=== PATIENT | male | born 1985 | race Caucasian/White ===

== ENCOUNTER 2018-03-14 21:50 | Observation (INO) ==
[2018-03-14] MEDS ORDERED: Acetaminophen 325 MG Tablet PO ONE (22:33)
[2018-03-14] MEDS ORDERED: Sod Chloride 0.9% Inj 800 ML IV.SIG SCH (22:45)
[2018-03-14] MEDS ORDERED: Sod Chloride 0.9% Inj 1,000 ML IV.SIG SCH (22:45)
--- NOTE | 2018-03-14 22:45 | ED ---
HPI General Chief complaint: Chest Pain Stated complaint: Rib and back pain x last PM Time Seen by Provider: 03/14/18 22:28 History of Present Illness HPI narrative: 33-year-old male here for evaluation of left-sided chest discomfort. The patient reports that the symptoms started yesterday evening, then resolved prior to going to bed. He states that he has had the pain all day today. He describes left anterior chest pain that radiates to his left back /flank, is constant, sharp/discomfort, worse with inspiration. He was noted to have a low-grade fever and tachycardia in triage. Denies cough or hemoptysis. No history of DVT or PE. No recent travel or immobilization. Denies illicit drugs or IVDU. Related Data Home Medications Medication Instructions Recorded Confirmed No Known Home Medications 03/14/18 03/14/18 Allergies Allergy/AdvReac Type Severity Reaction Status Date / Time Penicillins Allergy Severe Hives Verified 03/14/18 22:33 Review of Systems ROS: all other systems reviewed are negative [facility] Medical History Medical History DDD (degenerative disc disease) (Acute) Scoliosis (Acute) Surgical History Surgical History No history of previous surgery (Acute) Social History Social History Substance History: No History of Abuse Smoking Status: Current every day smoker Tobacco Type: Cigarettes How Often Do You Have a Drink Containing Alcohol: Monthly or less Immunization History Tetanus Immunization: >5 Years Hx Influenza Vaccine This Season: No Exam Narrative Exam Narrative: GENERAL: Well-developed, well-nourished, awake, alert, comfortable, no apparent distress. SKIN: Focused skin assessment warm/dry. HEAD: Atraumatic. Normocephalic. EYES: Pupils equal and round. No scleral icterus. No injection or drainage. ENT: No nasal bleeding or discharge. Mucous membranes pink and dry. NECK: Trachea midline. No JVD. CARDIOVASCULAR: Tachycardic, rate 120, regular. RESPIRATORY: No accessory muscle use. Clear to auscultation. Breath sounds equal bilaterally. GASTROINTESTINAL: Abdomen soft, non-tender, nondistended. Hepatic and splenic margins not palpable. MUSCULOSKELETAL: No obvious deformities. No clubbing. No cyanosis. No edema. NEUROLOGICAL: Awake and alert. No obvious cranial nerve deficits. Motor grossly within normal limits. Normal speech. PSYCHIATRIC: Appropriate mood and affect; insight and judgment normal. Course Initial Documented Vital Signs Temperature 99.4 F 03/14/18 22:12 Pulse Rate 122 H 03/14/18 22:12 Respiratory Rate 20 03/14/18 22:12 Blood Pressure 128/73 03/14/18 22:12 Pulse Oximetry 97 03/14/18 22:12 Last Documented Vital Signs Temperature 97.9 F 03/15/18 00:15 Pulse Rate 96 H 03/15/18 00:15 Respiratory Rate 16 03/14/18 23:29 Blood Pressure 117/64 03/15/18 00:15 Pulse Oximetry 97 03/15/18 00:15 Medical Decision Making MDM Narrative Medical decision making narrative: Labs, vital signs, and imaging studies were reviewed with the patient. Labs are remarkable for leukocytosis of 23,000. CT of the chest and abdomen and pelvis are negative for PE, there is left lower lung airspace disease with small effusion. Patient is still tachycardic despite receiving IV fluids. He will be started on IV Rocephin and azithromycin. Pain has improved with Toradol, however he still has discomfort with deep inspiration. Is also slightly hypoxic. Because of this he will be admitted for further treatment and evaluation. He is amenable to this plan. Case discussed with hospitalist Dr. Lou who will admit the patient to her service. Medical Screen Exam Complete: Yes Emergency Medical Condition: Yes Differential Diagnosis Differential Diagnosis: PE, sepsis, pneumonia, pyelonephritis, pleurisy, pericarditis, myocarditis Lab Data Result diagrams: 03/14/18 22:45 03/14/18 22:45 Lab Results 03/14/18 03/14/18 03/14/18 Range/Units 22:45 22:45 22:45 CBC w Diff Auto diff final WBC 23.9 H (4.0-11.0) th/mm3 RBC 4.92 (4.50-5.90) mil/mm3 Hgb 15.3 (13.0-17.0) gm/dL Hct 43.3 (39.0-51.0) % MCV 88.0 (80.0-100.0) fL MCH 31.2 (27.0-34.0) pg MCHC 35.4 (32.0-36.0) % RDW 14.3 (11.6-17.2) % Plt Count 325 (150-450) th/mm3 MPV 9.3 (7.0-11.0) fL Neut % (Auto) 91.9 H (16.0-70.0) % Lymph % (Auto) 5.4 L (9.0-44.0) % [place] % (Auto) 1.4 (0.0-8.0) % Eos % (Auto) 0.1 (0.0-4.0) % Baso % (Auto) 1.2 (0.0-2.0) % Neut # (Auto) 22.0 H (1.8-7.7) th/mm3 Lymph # (Auto) 1.3 (1.0-4.8) th/mm3 [place] # (Auto) 0.3 (0.0-0.9) th/mm3 Eos # (Auto) 0.0 (0.0-0.4) th/mm3 Baso # (Auto) 0.3 H (0.0-0.2) th/mm3 WBC Differential . Differential Comment . PT 9.6 L (9.8-11.6) sec INR 0.9 Ratio APTT 27.2 (24.3-30.1) sec Sodium 135 L (136-145) meq/L Potassium 4.1 (3.5-5.1) meq/L Chloride 99 (98-107) meq/L Carbon Dioxide 27.9 (21.0-32.0) meq/L Anion Gap 8 (5-15) meq/L BUN 9 (7-18) mg/dL Creatinine 1.30 (0.60-1.30) mg/dL Estimated GFR 64 L (>89) mL/min Random Glucose 105 (74-106) mg/dL Lactic Acid (0.4-2.0) mmol/L Calcium 10.0 (8.5-10.1) mg/dL Total Bilirubin 0.3 (0.2-1.0) mg/dL AST 14 L (15-37) U/L ALT 27 (12-78) U/L Alkaline Phosphatase 68 (45-117) U/L Total Creatine Kinase 112 (39-308) U/L CK-MB (CK-2) Less than 1.0 (0.5-3.6) ng/mL Troponin I Less than 0.02 L (0.02-0.05) ng/mL Total Protein 9.3 H (6.4-8.2) g/dL Albumin 4.9 (3.4-5.0) g/dL Lipase 98 (73-393) U/L Urine Color (Yellw/Straw) Urine Clarity (Clear) Urine pH (5.0-8.5) Ur Specific [place] (1.002-1.035) Urine Protein (Neg-Trace) mg/dL Urine Glucose (UA) (Negative) mg/dL Urine Ketones (Negative) mg/dL Urine Occult Blood (Negative) Urine Nitrate (Negative) Urine Bilirubin (Negative) Urine Urobilinogen (Less than 2) mg/dL Ur Leukocyte Esterase (Negative) 03/14/18 03/14/18 Range/Units 22:45 23:30 CBC w Diff WBC (4.0-11.0) th/mm3 RBC (4.50-5.90) mil/mm3 Hgb (13.0-17.0) gm/dL Hct (39.0-51.0) % MCV (80.0-100.0) fL MCH (27.0-34.0) pg MCHC (32.0-36.0) % RDW (11.6-17.2) % Plt Count (150-450) th/mm3 MPV (7.0-11.0) fL Neut % (Auto) (16.0-70.0) % Lymph % (Auto) (9.0-44.0) % [place] % (Auto) (0.0-8.0) % Eos % (Auto) (0.0-4.0) % Baso % (Auto) (0.0-2.0) % Neut # (Auto) (1.8-7.7) th/mm3 Lymph # (Auto) (1.0-4.8) th/mm3 [place] # (Auto) (0.0-0.9) th/mm3 Eos # (Auto) (0.0-0.4) th/mm3 Baso # (Auto) (0.0-0.2) th/mm3 WBC Differential Differential Comment PT (9.8-11.6) sec INR Ratio APTT (24.3-30.1) sec Sodium (136-145) meq/L Potassium (3.5-5.1) meq/L Chloride (98-107) meq/L Carbon Dioxide (21.0-32.0) meq/L Anion Gap (5-15) meq/L BUN (7-18) mg/dL Creatinine (0.60-1.30) mg/dL Estimated GFR (>89) mL/min Random Glucose (74-106) mg/dL Lactic Acid 2.0 (0.4-2.0) mmol/L Calcium (8.5-10.1) mg/dL Total Bilirubin (0.2-1.0) mg/dL AST (15-37) U/L ALT (12-78) U/L Alkaline Phosphatase (45-117) U/L Total Creatine Kinase (39-308) U/L CK-MB (CK-2) (0.5-3.6) ng/mL Troponin I (0.02-0.05) ng/mL Total Protein (6.4-8.2) g/dL Albumin (3.4-5.0) g/dL Lipase (73-393) U/L Urine Color Yellow (Yellw/Straw) Urine Clarity Clear (Clear) Urine pH 7.0 (5.0-8.5) Ur Specific [place] Less/equal 1.005 (1.002-1.035) Urine Protein Negative (Neg-Trace) mg/dL Urine Glucose (UA) Negative (Negative) mg/dL Urine Ketones Negative (Negative) mg/dL Urine Occult Blood Negative (Negative) Urine Nitrate Negative (Negative) Urine Bilirubin Negative (Negative) Urine Urobilinogen 0.2 (Less than 2) mg/dL Ur Leukocyte Esterase Negative (Negative) Imaging Data Radiologist's impression: Abdomen/Pelvis CT 03/14/18 22:33 CONCLUSION: 1. Mild left basilar airspace disease with small left effusion. Primary differential diagnosis is a mild bronchopneumonia with small parapneumonic effusion. 2. No acute findings within the abdomen and pelvis. Chest CTA 03/14/18 22:33 CONCLUSION: 1. Negative for pulmonary embolus. Small left-sided pleural effusion of unknown etiology. Chest X-Ray 03/14/18 22:34 CONCLUSION: Negative examination. ECG Data Attestation: I personally reviewed and interpreted this ECG as follows: (Sinus, rate 103, normal axis, normal intervals, no acute ischemic abnormality.) Discharge Plan Discharge Disposition Patient Disposition: 30 Still Patient Discharge Condition Condition: Stable Discharge Details Diagnosis: Pneumonia, SIRS (systemic inflammatory response syndrome) Physicians Team ED Provider: Will Buchanan Primary Care Provider: Primary Care Wanda Duckworth Rxs /Orders / Referrals /Forms Prescriptions: No Action No Known Home Medications RF: 0 Discharge Instructions Patient Printed Instructions: Chest Pain (ED) Discharge Interventions Interventions: Vital Signs Last Done: 03/15/18 00:15 Status ED Status: With Doctor
[2018-03-14 23:09] LABS: Chloride 99 meq/L (98-107); Potassium 4.1 meq/L (3.5-5.1); Sodium 135 meq/L (136-145)
[2018-03-14 23:14] LABS: Activated Partial Thrombo Time 27.2 sec (24.3-30.1); Baso # (Auto) 0.3 th/mm3 (0.0-0.2); Baso % (Auto) 1.2 % (0.0-2.0); Eos % (Auto) 0.1 % (0.0-4.0); Hematocrit 43.3 % (39.0-51.0); Hemoglobin 15.3 gm/dL (13.0-17.0); INR 0.9 Ratio; Lymph # (Auto) 1.3 th/mm3 (1.0-4.8); Lymph % (Auto) 5.4 % (9.0-44.0); Mean Corpuscular HGB Conc 35.4 % (32.0-36.0); Mean Corpuscular Hemoglobin 31.2 pg (27.0-34.0); Mean Platelet Volume 9.3 fL (7.0-11.0); Mono # (Auto) 0.3 th/mm3 (0.0-0.9); Mono % (Auto) 1.4 % (0.0-8.0); Neut % (Auto) 91.9 % (16.0-70.0); Platelet Count 325 th/mm3 (150-450); Prothrombin Time 9.6 sec (9.8-11.6); Red Blood Count 4.92 mil/mm3 (4.50-5.90); Red Cell Distribution Width 14.3 % (11.6-17.2); White Blood Count 23.9 th/mm3 (4.0-11.0)
[2018-03-14 23:15] LABS: Albumin 4.9 g/dL (3.4-5.0); Anion Gap 8 meq/L (5-15); Blood Urea Nitrogen 9 mg/dL (7-18); Carbon Dioxide 27.9 meq/L (21.0-32.0); Glucose,Random 105 mg/dL (74-106); Lipase 98 U/L (73-393)
[2018-03-14 23:17] LABS: Alanine Aminotransferase 27 U/L (12-78); Glomerular Filtration Rate 64 mL/min (>89)
[2018-03-14 23:18] LABS: Aspartate Aminotransferase 14 U/L (15-37)
[2018-03-14 23:19] LABS: Total Protein 9.3 g/dL (6.4-8.2)
[2018-03-14 23:20] LABS: Alkaline Phosphatase 68 U/L (45-117); Creatine Kinase 112 U/L (39-308)
--- NOTE | 2018-03-14 23:21 | XR ---
EXAM DATE: 03/14/2018 11:07 PM EDT AGE/SEX: 33 years / Male INDICATIONS: Short of breath, chest and back pain. CLINICAL DATA: This is the patient's initial encounter. Patient reports that signs and symptoms have been present for 1 day and indicates a pain score of 4/10. MEDICAL/SURGICAL HISTORY: None. None. COMPARISON: No prior exams available for comparison. FINDINGS: A single AP view of the chest demonstrates the lungs to be symmetrically aerated without evidence of mass, infiltrate or effusion. The cardiomediastinal contours are unremarkable. Osseous structures a re intact. CONCLUSION: Negative examination. Electronically signed by: Atilio De Dios MD 03/14/2018 11:20 PM EDT
[2018-03-14] MEDS ORDERED: Ketorolac Inj 30 MG/ML (IVP) Vial IV.PUSH ONE (23:31)
[2018-03-14 23:34] LABS: Bilirubin,Urine Negative (Negative); Clarity,Urine Clear (Clear); Color,Urine Yellow (Yellw/Straw); Glucose,Urine (UA) Negative (Negative); Leukocyte Esterase,Urine Negative (Negative); Nitrite,Urine Negative (Negative); Specific Gravity,Urine Less/Equal 1.005 (1.002-1.035); Urobilinogen,Urine 0.2 mg/dL (Less than 2)
--- NOTE | 2018-03-15 00:01 | CT ---
EXAM DATE: 03/14/2018 11:55 PM EDT AGE/SEX: 33 years / Male INDICATIONS: Chest pain. Shortness of breath. Evaluate for embolism. CLINICAL DATA: This is the patient's initial encounter. Patient reports that signs and symptoms have been present for 1 day and indicates a pain score of 4/10. MEDICAL/SURGICAL HISTORY: None. None. RADIATION DOSE: 10.51 CTDI (mGy) COMPARISON: No prior exams available for comparison. TECHNIQUE: Volumetric scanning was performed using a multi-row detector CT scanner during bolus infu anjum of 75 ml Omnipaque 350 (iohexol) nonionic water-soluble contrast as a cumulative dose for multi ple exams. The data was post processed with a variety of visualization algorithms including full volu me maximum intensity projection and sliding thin slab reformation. Using automated exposure control and adjustment of the mA and/or kV according to patient size, radiation dose was kept as low as reaso nably achievable to obtain optimal diagnostic quality images. DICOM format image data is available e lectronically for review and comparison. FINDINGS: No filling defects to suggest pulmonary embolus. Dependent atelectasis in both lungs with small left- sided pleural effusion. No pericardial effusion. Mild emphysema. No adenopathy. No acute findings in the upper abdomen. CONCLUSION: 1. Negative for pulmonary embolus. Small left-sided pleural effusion of unknown etiology. Electronically signed by: Atilio De Dios MD 03/15/2018 12:00 AM EDT
--- NOTE | 2018-03-15 00:13 | CT ---
EXAM DATE: 03/15/2018 12:00 AM EDT AGE/SEX: 33 years / Male INDICATIONS: Abdominal pain. CLINICAL DATA: This is the patient's initial encounter. Patient reports that signs and symptoms have been present for 1 day and indicates a pain score of 4/10. MEDICAL/SURGICAL HISTORY: None. None. ORAL CONTRAST: No oral contrast ingested. RADIATION DOSE: 7.10 CTDI (mGy) COMPARISON: No prior exams available for comparison. TECHNIQUE: Multiple contiguous axial images were obtained through the abdomen and pelvis following b olus infusion of 75 ml Omnipaque 350 (iohexol) nonionic water-soluble contrast as a cumulative dose for multiple exams. No oral contrast ingested. Using automated exposure control and adjustment of t he mA and/or kV according to patient size, radiation dose was kept as low as reasonably achievable to obtain optimal diagnostic quality images. DICOM format image data is available electronically for r eview and comparison. FINDINGS: There is some left basilar airspace disease posteriorly with small left effusion. Differential diagno sis includes a mild left basilar pneumonia with parapneumonic effusion. Mild fatty liver. Spleen, adrenals, kidneys and pancreas unremarkable. No free fluid. No bowel obstruction. No adenopathy. CONCLUSION: 1. Mild left basilar airspace disease with small left effusion. Primary differential diagnosis is a mild bronchopneumonia with small parapneumonic effusion. 2. No acute findings within the abdomen and pelvis. Electronically signed by: Atilio De Dios MD 03/15/2018 12:11 AM EDT
[2018-03-15] MEDS ORDERED: Acetaminophen 325 MG Tablet PO PRN (00:27)
[2018-03-15] MEDS ORDERED: Bisacodyl 10 MG Supp RECTAL PRN (00:27)
[2018-03-15 00:32] LABS: Squamous Epithelial Cell,Urine 0-5 /hpf (0-5)
[2018-03-15] MEDS: Azithromycin Inj 500 MG in Sodium Chlor 0.9% Inj 250 ML IV.SIG ONE ×2 (01:42→01:44)
[2018-03-15 08:46] LABS: Baso # (Auto) 0.2 th/mm3 (0.0-0.2); Baso % (Auto) 0.9 % (0.0-2.0); Eos # (Auto) 0.1 th/mm3 (0.0-0.4); Eos % (Auto) 0.3 % (0.0-4.0); Hematocrit 38.7 % (39.0-51.0); Hemoglobin 13.1 gm/dL (13.0-17.0); Lymph # (Auto) 2.3 th/mm3 (1.0-4.8); Mean Corpuscular HGB Conc 33.8 % (32.0-36.0); Mean Corpuscular Hemoglobin 29.9 pg (27.0-34.0); Mean Corpuscular Volume 88.5 fL (80.0-100.0); Mean Platelet Volume 8.7 fL (7.0-11.0); Mono # (Auto) 1.3 th/mm3 (0.0-0.9); Mono % (Auto) 7.2 % (0.0-8.0); Neut # (Auto) 13.6 th/mm3 (1.8-7.7); Neut % (Auto) 78.6 % (16.0-70.0); Platelet Count 257 th/mm3 (150-450); Red Blood Count 4.37 mil/mm3 (4.50-5.90); Red Cell Distribution Width 14.6 % (11.6-17.2); White Blood Count 17.5 th/mm3 (4.0-11.0)
[2018-03-15] MEDS: Senna/Docusate Sodium 8.6/50 MG Tablet PO SCH ×2 (08:54→21:44)
[2018-03-15 10:05] LABS: Anion Gap 8 meq/L (5-15); Calcium 8.5 mg/dL (8.5-10.1); Carbon Dioxide 25.1 meq/L (21.0-32.0); Chloride 108 meq/L (98-107); Glomerular Filtration Rate Greater Than 89 mL/min (>89); Glucose,Random 102 mg/dL (74-106); Sodium 141 meq/L (136-145)
[2018-03-15 10:18] LABS: Blood Urea Nitrogen 10 mg/dL (7-18)
--- NOTE | 2018-03-15 11:09 | P.PNIM ---
Subjective Interval history: Mr. Renteria is a 33 yo male with PMH of back pain who presented to [facility] ED 03/14 with chest and left arm pain; patient states that this pain started the night before last. Patient describes some of his pain as constant, but that he has sharp increase of pain with deep breaths. patient reports that he Patient still had chest tightness afterwards. Patient had pain with deep breeaths. Aching never went away. vomiting 2 days prior from pain; not from eating. no coughing more than usual; patient coughs. Patient had a subjective fever before before he came in. No problems with urination or bowel movements left arm tingling when it started also pain with breathing deeply; much better with meds feels like not getting full breaths SH <1PPD no drugs FH dad- cancer- in spine GF- DC x2; pneumonia <Mom- in/out of hospital for ? problems Sh none PMH back pain since age 13yrs deteriorating joints small narrowing of spinal canal. doesn't realize when different Physical Exam Vital signs: Vital Signs 03/14/18 22:12 03/14/18 22:52 03/14/18 23:29 Temperature 99.4 F Pulse Rate 122 H 104 H Respiratory Rate 20 16 Blood Pressure 128/73 117/70 Pulse Oximetry 97 98 97 03/15/18 00:15 03/15/18 01:19 03/15/18 04:00 Temperature 97.9 F 97.8 F 96.1 F L Pulse Rate 96 H 92 H 85 Respiratory Rate 18 18 Blood Pressure 117/64 116/70 99/52 L Pulse Oximetry 97 94 L 97 03/15/18 08:00 Temperature 98.2 F Pulse Rate 80 Respiratory Rate 16 Blood Pressure 102/59 L Pulse Oximetry 97 Intake & Output 03/14/18 03/15/18 03/15/18 18:59 06:59 18:59 Intake Total 2250 / 2250 Balance 2250 / 2250 Weight 66.2 kg Intake: IV 2150 / 2150 Azithromycin Inj 500 MG In NS 250 / 250 Inj 250 ML @ 250 mls/hr IV.SIG ONCE ONE Rx#:[id number] NS Inj 1,000 ML @ Wide Open IV. 1800 / 1800 SIG .Q0M JOSE Rx#:[id number] Rocephin Inj 1,000 MG In NS Inj 100 / 100 100 ML @ 200 mls/hr IV.SIG ONCE ONE Rx#:[id number] Oral 100 / 100 Other: # Voids 1 Date of Last Bowel Movement 03/14/18 Weight On Admission 66.2 kg Results - Labs CBC & Chem 7: 03/15/18 08:31 03/15/18 09:06 Laboratory Results - last 24 hr 03/14/18 03/14/18 03/14/18 22:45 22:45 22:45 CBC w Diff Auto diff final WBC 23.9 H RBC 4.92 Hgb 15.3 Hct 43.3 MCV 88.0 MCH 31.2 MCHC 35.4 RDW 14.3 Plt Count 325 MPV 9.3 Neut % (Auto) 91.9 H Lymph % (Auto) 5.4 L [place] % (Auto) 1.4 Eos % (Auto) 0.1 Baso % (Auto) 1.2 Neut # (Auto) 22.0 H Lymph # (Auto) 1.3 [place] # (Auto) 0.3 Eos # (Auto) 0.0 Baso # (Auto) 0.3 H WBC Differential . Differential Comment . PT 9.6 L INR 0.9 APTT 27.2 Sodium 135 L Potassium 4.1 Chloride 99 Carbon Dioxide 27.9 Anion Gap 8 BUN 9 Creatinine 1.30 Estimated GFR 64 L Random Glucose 105 Lactic Acid Calcium 10.0 Total Bilirubin 0.3 AST 14 L ALT 27 Alkaline Phosphatase 68 Total Creatine Kinase 112 CK-MB (CK-2) Less than 1.0 Troponin I Less than 0.02 L Total Protein 9.3 H Albumin 4.9 Lipase 98 Urine Color Urine Clarity Urine pH Ur Specific [place] Urine Protein Urine Glucose (UA) Urine Ketones Urine Occult Blood Urine Nitrate Urine Bilirubin Urine Urobilinogen Ur Leukocyte Esterase Ur Squamous Epith Cells Micro UA Comment Ur Microscopic Review Urine Culture Comments 03/14/18 03/14/18 03/15/18 22:45 23:30 08:31 CBC w Diff Auto diff final WBC 17.5 H RBC 4.37 L Hgb 13.1 D Hct 38.7 L MCV 88.5 MCH 29.9 MCHC 33.8 RDW 14.6 Plt Count 257 MPV 8.7 Neut % (Auto) 78.6 H Lymph % (Auto) 13.0 [place] % (Auto) 7.2 Eos % (Auto) 0.3 Baso % (Auto) 0.9 Neut # (Auto) 13.6 H Lymph # (Auto) 2.3 [place] # (Auto) 1.3 H Eos # (Auto) 0.1 Baso # (Auto) 0.2 WBC Differential . Differential Comment . PT INR APTT Sodium Potassium Chloride Carbon Dioxide Anion Gap BUN Creatinine Estimated GFR Random Glucose Lactic Acid 2.0 Calcium Total Bilirubin AST ALT Alkaline Phosphatase Total Creatine Kinase CK-MB (CK-2) Troponin I Total Protein Albumin Lipase Urine Color Yellow Urine Clarity Clear Urine pH 7.0 Ur Specific [place] Less/equal 1.005 Urine Protein Negative Urine Glucose (UA) Negative Urine Ketones Negative Urine Occult Blood Negative Urine Nitrate Negative Urine Bilirubin Negative Urine Urobilinogen 0.2 Ur Leukocyte Esterase Negative Ur Squamous Epith Cells 0-5 Micro UA Comment Culture not ind Ur Microscopic Review Microscopic reviewed Urine Culture Comments Culture not ind 03/15/18 09:06 CBC w Diff WBC RBC Hgb Hct MCV MCH MCHC RDW Plt Count MPV Neut % (Auto) Lymph % (Auto) [place] % (Auto) Eos % (Auto) Baso % (Auto) Neut # (Auto) Lymph # (Auto) [place] # (Auto) Eos # (Auto) Baso # (Auto) WBC Differential Differential Comment PT INR APTT Sodium 141 Potassium 4.0 Chloride 108 H D Carbon Dioxide 25.1 Anion Gap 8 BUN 10 Creatinine 0.83 Estimated GFR Greater than 89 Random Glucose 102 Lactic Acid Calcium 8.5 D Total Bilirubin AST ALT Alkaline Phosphatase Total Creatine Kinase CK-MB (CK-2) Troponin I Total Protein Albumin Lipase Urine Color Urine Clarity Urine pH Ur Specific [place] Urine Protein Urine Glucose (UA) Urine Ketones Urine Occult Blood Urine Nitrate Urine Bilirubin Urine Urobilinogen Ur Leukocyte Esterase Ur Squamous Epith Cells Micro UA Comment Ur Microscopic Review Urine Culture Comments Microbiology 03/14/18 22:53 Blood - Peripheral Aerobic Blood Culture - Preliminary No growth in 1 day 03/14/18 22:53 Blood - Peripheral Anaerobic Blood Culture - Preliminary No growth in 1 day 03/14/18 22:45 Blood - Peripheral Aerobic Blood Culture - Preliminary No growth in 1 day 03/14/18 22:45 Blood - Peripheral Anaerobic Blood Culture - Preliminary No growth in 1 day - Imaging Impressions Abdomen/Pelvis CT 03/14/18 22:33 CONCLUSION: 1. Mild left basilar airspace disease with small left effusion. Primary differential diagnosis is a mild bronchopneumonia with small parapneumonic effusion. 2. No acute findings within the abdomen and pelvis. Chest CTA 03/14/18 22:33 CONCLUSION: 1. Negative for pulmonary embolus. Small left-sided pleural effusion of unknown etiology. Chest X-Ray 03/14/18 22:34 CONCLUSION: Negative examination.
[2018-03-15] MEDS ORDERED: Ibuprofen 600 MG Tablet PO PRN (12:52)
--- NOTE | 2018-03-15 12:57 | P.HPIM ---
History of Present Illness Service: [facility] Primary Care Physician: No Primary Care Physician Chief Complaint: chest pain/arm pain History of Present Illness: Mr. Renteria is a 33 yo male with PMH of back pain who presented to [facility] ED 03/14 with chest and left arm pain; patient states that this pain started the night before last. Patient describes some of his pain as constant, but that he has sharp increases of pain with deep breaths. No reported exertional symptoms. No sputum production. Patient has had a subjective fever. Patient has had a mild cough but no more than usual. Patient feels that pain is improved but still present with deep breaths. Patient had one episode of vomiting which he attributes to pain; no postprandial pain or vomiting. Normal bowel movements and urination. No headache, vision changes, or extremity numbness/tingling/ weakness reported. Patient reports distant IVDU but none for years. PMH-back pain since age 13, some scoliosis/ chronic spinal pathology PSH- none FH- Dad- unspecified spine cancer. Mom- ? psychiatric problems. GP- CAD, pneumonia. SH- smoking <1PPD. No recent drug use but distant IVDU Review of Systems Constitutional: Reports fever(s) (subjective), Denies chills Eyes: Denies blurry vision, Denies change in vision Ears, Nose, Mouth, and Throat: Denies neck pain, Denies sore throat Cardiovascular: Reports chest pain, Denies shortness of breath Respiratory: Denies change in phlegm color, Denies wheezing Gastrointestinal: Denies abdominal pain, Denies change in stools Genitourinary: Denies urinary frequency, Denies urinary urgency Musculoskeletal: Denies numbness, Denies tingling Skin/Breast: Denies lesions, Denies rash Neurologic: Denies abnormal speech, Denies tingling Psychiatric: Denies anxiety, Denies depression Allergic/Immunologic: Denies GI upset with certain foods, Denies wheezing PMFSH - History History Provided By: Patient - Medical History Medical History: Medical History (Last Updated 03/14/18 @ 22:34 by Christina Landry RN) DDD (degenerative disc disease) Scoliosis - Surgical History Surgical History: Surgical History (Last Updated 03/14/18 @ 22:34 by Christina Landry RN) No history of previous surgery - Family History Family History: Family History (Last Updated 03/15/18 @ 12:43 by Chandler Stokes MD) Grandparent CAD (coronary artery disease) Father Cancer Other Pneumonia - Tobacco History Second Hand Smoke Exposure: No Tobacco Use In Past 30 Days: Yes Smoking Status: Current some day smoker Tobacco Type: Cigarettes - Alcohol History How Often Do You Have a Drink Containing Alcohol: Never - Substance Use History Substance History: No History of Abuse - Immunization History Tetanus Immunization: Unable to Assess Hx Influenza Vaccine This Season: No Medications and Allergies Active Medications: Active Medications Acetaminophen (Tylenol) 650 mg PO Q4H PRN PRN Reason: Temp > 100.4 Al Hydroxide/Mg Hydroxide (Milk Of Magnesia Liq) 30 ml PO Q12H PRN PRN Reason: Mild Constipation Albuterol (Duoneb Neb (Prn)) 1 ampul NEB Q4HR NEB PRN PRN Reason: SOB/Wheezing Bisacodyl (Dulcolax Supp) 10 mg RECTAL DAILY PRN PRN Reason: SEVERE CONSITIPATION Sodium Chloride (Ns Inj) 1,000 mls @ 0 mls/hr IV.SIG .Q0M JOSE Last Infusion: 03/15/18 00:46 Dose: Infused Sodium Chloride (Ns Inj) 800 mls @ 0 mls/hr IV.SIG .Q0M JOSE Last Infusion: 03/15/18 00:23 Dose: Infused Azithromycin 500 mg/ Sodium (Chloride) 250 mls @ 250 mls/hr IV.SIG Q24H JOSE Ceftriaxone Sodium 1,000 mg/ (Sodium Chloride) 100 mls @ 200 mls/hr IV.SIG Q24H JOSE Lactulose (Lactulose Liq) 30 ml PO DAILY PRN PRN Reason: SEVERE CONSITIPATION Ondansetron HCl (Zofran Inj) 4 mg IV.PUSH Q6H PRN PRN Reason: NAUSEA OR VOMITING Senna/Docusate Sodium (Vesna-Colace) 1 tab PO BID JOSE Last Admin: 03/15/18 08:54 Dose: 1 tab Sennosides (Senokot) 17.2 mg PO Q12H PRN PRN Reason: Moderate Constipation Allergies Allergy/AdvReac Type Severity Reaction Status Date / Time Penicillins Allergy Severe Hives Verified 03/14/18 22:33 Home Medications Medication Instructions Recorded Confirmed Type No Known Home Medications 03/14/18 03/14/18 History Exam Vital signs: Vital Signs 03/14/18 22:12 03/14/18 22:52 03/14/18 23:29 Temperature 99.4 F Pulse Rate 122 H 104 H Respiratory Rate 20 16 Blood Pressure 128/73 117/70 Pulse Oximetry 97 98 97 03/15/18 00:15 03/15/18 01:19 03/15/18 04:00 Temperature 97.9 F 97.8 F 96.1 F L Pulse Rate 96 H 92 H 85 Respiratory Rate 18 18 Blood Pressure 117/64 116/70 99/52 L Pulse Oximetry 97 94 L 97 03/15/18 08:00 03/15/18 12:00 Temperature 98.2 F 97.9 F Pulse Rate 80 73 Respiratory Rate 16 16 Blood Pressure 102/59 L 112/61 Pulse Oximetry 97 98 Intake & Output 03/14/18 03/15/18 03/15/18 18:59 06:59 18:59 Intake Total 2250 / 2250 Balance 2250 / 2250 Weight 66.2 kg Intake: IV 2150 / 2150 Azithromycin Inj 500 MG In NS 250 / 250 Inj 250 ML @ 250 mls/hr IV.SIG ONCE ONE Rx#:[id number] NS Inj 1,000 ML @ Wide Open IV. 1800 / 1800 SIG .Q0M JOSE Rx#:[id number] Rocephin Inj 1,000 MG In NS Inj 100 / 100 100 ML @ 200 mls/hr IV.SIG ONCE ONE Rx#:[id number] Oral 100 / 100 Other: # Voids 1 Date of Last Bowel Movement 03/14/18 Weight On Admission 66.2 kg Narrative: GENERAL: no acute distress SKIN: no visible lesions EYES: EOM grossly I ENT: Mucous membranes pink and moist. CARDIOVASCULAR: Regular rate and rhythm; no murmurs. Normal perfusion. No LE edema RESPIRATORY: CTAB; normal rate. Chest: Mild pain with deep inspiration GASTROINTESTINAL: Abdomen soft, nontender, nondistended. Normal bowel sounds. MUSCULOSKELETAL: Grossly normal ROM and motor function NEUROLOGICAL: Awake and alert. No obvious cranial nerve deficits. Grossly normal peripheral motor/sensory function PSYCHIATRIC: Appropriate mood and affect; insight and judgment normal Results - Labs CBC & Chem 7: 03/15/18 08:31 03/15/18 09:06 Labs: Short CBC 03/14/18 03/15/18 Range/Units 22:45 08:31 WBC 23.9 H 17.5 H (4.0-11.0) th/mm3 Hgb 15.3 13.1 D (13.0-17.0) gm/dL Hct 43.3 38.7 L (39.0-51.0) % Plt Count 325 257 (150-450) th/mm3 BMP 03/14/18 03/15/18 22:45 09:06 Sodium 135 L 141 Potassium 4.1 4.0 Chloride 99 108 H D Carbon Dioxide 27.9 25.1 BUN 9 10 Creatinine 1.30 0.83 Calcium 10.0 8.5 D Cardiac Enzymes 03/14/18 Range/Units 22:45 Total Creatine Kinase 112 (39-308) U/L CK-MB (CK-2) Less than 1.0 (0.5-3.6) ng/mL Troponin I Less than 0.02 L (0.02-0.05) ng/mL Liver Function 03/14/18 Range/Units 22:45 Total Bilirubin 0.3 (0.2-1.0) mg/dL AST 14 L (15-37) U/L ALT 27 (12-78) U/L Alkaline Phosphatase 68 (45-117) U/L Albumin 4.9 (3.4-5.0) g/dL Urine 03/14/18 Range/Units 23:30 Urine Color Yellow (Yellw/Straw) Urine Clarity Clear (Clear) Urine pH 7.0 (5.0-8.5) Ur Specific [place] Less/equal 1.005 (1.002-1.035) Urine Protein Negative (Neg-Trace) mg/dL Urine Glucose (UA) Negative (Negative) mg/dL - Imaging Impressions Abdomen/Pelvis CT 03/14/18 22:33 CONCLUSION: 1. Mild left basilar airspace disease with small left effusion. Primary differential diagnosis is a mild bronchopneumonia with small parapneumonic effusion. 2. No acute findings within the abdomen and pelvis. Chest CTA 03/14/18 22:33 CONCLUSION: 1. Negative for pulmonary embolus. Small left-sided pleural effusion of unknown etiology. Chest X-Ray 03/14/18 22:34 CONCLUSION: Negative examination. Caprini VTE Risk Assessment Caprini VTE Risk Assessment: No/Low Risk (score <= 1) Caprini Risk Assessment Model: Point Value = 1 Point Value = 2 Point Value = 3 Point Value = 5 Age 41-60 Minor surgery BMI > 25 kg/m2 Swollen legs Varicose veins or History of unexplained or recurrent spontaneous Oral contraceptives or hormone replacement Sepsis (< 1 month) Serious lung disease, including pneumonia (< 1 month) Abnormal pulmonary function Acute myocardial infarction Congestive heart failure (< 1 month) History of inflammatory bowel disease Medical patient at bed rest Age 61-74 Arthroscopic surgery Major open surgery (> 45 min) Laparoscopic surgery (> 45 min) Malignancy Confined to bed (> 72 hours) Immobilizing plaster cast Central venous access Age >= 75 History of VTE Family history of VTE Factor V Leiden Prothrombin [id number] Lupus anticoagulant Anticardiolipin antibodies Elevated serum homocysteine Heparin-induced thrombocytopenia Other congenital or acquired thrombophilia Stroke (< 1 month) Elective arthroplasty Hip, pelvis, or leg fracture Acute spinal cord injury (< 1 month) Prophylaxis Regimen: Total Risk Factor Score Risk Level Prophylaxis Regimen 0-1 Low Early ambulation 2 Moderate Order ONE of the following: *Sequential Compression Device (SCD) *Heparin 5000 units SQ BID 3-4 Higher Order ONE of the following medications: *Heparin 5000 units SQ TID *Enoxaparin/Lovenox 40 mg SQ daily (WT < 150 kg, CrCl > 30 mL/min) *Enoxaparin/Lovenox 30 mg SQ daily (WT < 150 kg, CrCl > 10-29 mL/min) *Enoxaparin/Lovenox 30 mg SQ BID (WT < 150 kg, CrCl > 30 mL/min) AND/OR *Sequential Compression Device (SCD) 5 or more Highest Order ONE of the following medications: *Heparin 5000 units SQ TID (Preferred with Epidurals) *Enoxaparin/Lovenox 40 mg SQ daily (WT < 150 kg, CrCl > 30 mL/min) *Enoxaparin/Lovenox 30 mg SQ daily (WT < 150 kg, CrCl > 10-29 mL/min) *Enoxaparin/Lovenox 30 mg SQ BID (WT < 150 kg, CrCl > 30 mL/min) AND *Sequential Compression Device (SCD) Assessment and Plan - Plan Mr. Renteria is a 33 yo M with: Chest pain, leukocytosis Impression: 2 day history of chest pain; worse with deep inspiration. Unclear etiology of symptoms Vitals on admission: HR >120, otherwise unremarkable. Labs on admission: WBC 23.9K (91.9 neutrophils), troponin <0.02, Cr 1.3. EKG- sinus tachycardia; no obvious LVH or other pathology identified CXR negative CT A/P- mild L basilar airspace disease w/ small left effusion. Primary differential is mild bronchopneumonia with small parapneumonic effusion CTA- No PE. Small left sided effusion -Continue to trend CBC -WBC decreased to ~17 K today -Continue to monitor blood cultures -Continue empiric CAP treatment -Rocephin and Azithromycin -Ibuprofen for pain control -Will check UDS -Monitor telemetry, VS -Will check ESR and echo (atypical presentation and distant IVDU) DVT PPX SCD's Code Status: Full code Discharge Planning: Will await negative blood cultures x >2 days H&P: Quality - VTE Deep Vein Thrombosis/Pulmonary Embolism Present on Admission: No
[2018-03-15 15:02] LABS: Amphetamine Screen,Urine Neg (Neg); Barbiturate Screen,Urine Neg (Neg); Cannabinoid Screen,Urine Neg (Neg); Cocaine Screen,Urine Neg (Neg)
[2018-03-15 15:07] LABS: Opiate Screen,Urine Neg (Neg)
--- NOTE | 2018-03-15 16:54 | ECHRPT ---
Indication: CHEST PAIN CONCLUSIONS The left ventricular systolic function is normal with an estimated ejection fraction in the range of 60-65%. Normal left ventricular size. Wall thickness is normal. No regional wall motion abnormalities are present. BP: / HR: Rhythm: Sinus MEASUREMENTS (Male / Female) Normal Values Technical Quality:Good 2D ECHO LV Diastolic Diameter PLAX 4.5 cm 4.2 - 5.9 / 3.9 - 5.3 cm LV Systolic Diameter PLAX 3.2 cm IVS Diastolic Thickness 0.8 cm 0.6 - 1.0 / 0.6 - 0.9 cm LVPW Diastolic Thickness 0.7 cm 0.6 - 1.0 / 0.6 - 0.9 cm LV Relative Wall Thickness 0.3 RV Internal Dim ED PLAX 2.5 cm LVOT Diameter 2.0 cm LA Systolic Diameter LX 2.3 cm 3.0 - 4.0 / 2.7 - 3.8 cm LV Ejection Fraction MOD 4C 62.7 % LV Ejection Fraction 4C AL 64.8 % FINDINGS LEFT VENTRICLE The left ventricular systolic function is normal with an estimated ejection fraction in the range of 60-65%. Normal left ventricular size. Wall thickness is normal. No regional wall motion abnormalities are present. RIGHT VENTRICLE Normal right ventricular size and systolic function. LEFT ATRIUM The left atrial size is normal. RIGHT ATRIUM The right atrial size is normal. MITRAL VALVE Structurally normal mitral valve. No mitral valve stenosis or regurgitation. AORTIC VALVE Parasternal images were not obtained with this study. No aortic valve stenosis or regurgitation. TRICUSPID VALVE Structurally normal tricuspid valve. No tricuspid valve stenosis or regurgitation. PERICARDIUM No pericardial effusion. Marko Grider (Electronically Signed) Final Date:15 March 2018 16:53
--- NOTE | 2018-03-15 18:51 | ECG ---
Date Performed: 03/14/2018 Time Performed: 22:56:18 PTAGE: 33 years EKG: SINUS TACHYCARDIA ABNORMAL RHYTHM ECG NO PREVIOUS TRACING DOCTOR: Giovanni Andujar Interpretating Date/Time 03/15/2018 18:47:57
[2018-03-16] MEDS ORDERED: Azithromycin Inj 500 MG in Sodium Chlor 0.9% Inj 250 ML IV.SIG SCH (01:00)
[2018-03-16 06:29] LABS: Chloride 106 meq/L (98-107); Potassium 4.3 meq/L (3.5-5.1); Sodium 139 meq/L (136-145)
[2018-03-16 06:34] LABS: Anion Gap 7 meq/L (5-15); Calcium 8.2 mg/dL (8.5-10.1); Carbon Dioxide 25.6 meq/L (21.0-32.0)
[2018-03-16 06:35] LABS: Blood Urea Nitrogen 12 mg/dL (7-18); Glucose,Random 94 mg/dL (74-106)
[2018-03-16 06:36] LABS: Baso # (Auto) 0.1 th/mm3 (0.0-0.2); Baso % (Auto) 0.8 % (0.0-2.0); Eos # (Auto) 0.4 th/mm3 (0.0-0.4); Eos % (Auto) 3.5 % (0.0-4.0); Hematocrit 38.5 % (39.0-51.0); Hemoglobin 12.6 gm/dL (13.0-17.0); Lymph # (Auto) 4.3 th/mm3 (1.0-4.8); Lymph % (Auto) 38.7 % (9.0-44.0); Mean Corpuscular HGB Conc 32.7 % (32.0-36.0); Mean Corpuscular Hemoglobin 29.7 pg (27.0-34.0); Mean Corpuscular Volume 90.9 fL (80.0-100.0); Mean Platelet Volume 9.3 fL (7.0-11.0); Mono # (Auto) 0.9 th/mm3 (0.0-0.9); Mono % (Auto) 8.2 % (0.0-8.0); Neut # (Auto) 5.3 th/mm3 (1.8-7.7); Neut % (Auto) 48.8 % (16.0-70.0); Platelet Count 244 th/mm3 (150-450); Red Blood Count 4.24 mil/mm3 (4.50-5.90); Red Cell Distribution Width 14.4 % (11.6-17.2); White Blood Count 11.1 th/mm3 (4.0-11.0)
[2018-03-16 06:38] LABS: Glomerular Filtration Rate Greater Than 89 mL/min (>89)
[2018-03-16 08:07] VITALS: RESP 18
[2018-03-16] MEDS: Senna/Docusate Sodium 8.6/50 MG Tablet PO SCH (08:32)
[2018-03-16] MEDS ORDERED: Meloxicam 7.5 MG Tablet PO SCH (11:30)
--- NOTE | 2018-03-16 11:33 | P.PNIM ---
Subjective Interval history: Mr. Renteria was afebrile with stable VS overnight. Patient reports continued chest pain when breathing deeply or rotating his body in bed. Pain is in left chest. Patient otherwise is doing ok. No reported shortness of breath or urinary/bowel abnormalities. Patient is agreeable with discharge home and follow-up with a primary care physician. Physical Exam Vital signs: Vital Signs 03/15/18 12:00 03/15/18 16:00 03/15/18 20:00 Temperature 97.9 F 98.5 F 96.7 F L Pulse Rate 73 73 73 Respiratory Rate 16 16 20 Blood Pressure 112/61 112/64 116/74 Pulse Oximetry 98 98 99 03/15/18 23:26 03/16/18 00:00 03/16/18 01:21 Temperature 96.9 F L Pulse Rate 67 Respiratory Rate 20 20 20 Blood Pressure 103/64 Pulse Oximetry 98 03/16/18 04:00 03/16/18 08:00 Temperature 96.4 F L Pulse Rate 59 L 76 Respiratory Rate 20 18 Blood Pressure 102/55 L 116/74 Pulse Oximetry 98 96 Intake & Output 03/15/18 03/16/18 03/16/18 18:59 06:59 18:59 Intake Total 710 / 710 Balance 710 / 710 Weight 68.6 kg Intake: IV 350 / 350 Azithromycin Inj 500 MG In NS 250 / 250 Inj 250 ML @ 250 mls/hr IV.SIG Q24H JOSE Rx#:[id number] Rocephin Inj 1,000 MG In NS Inj 100 / 100 100 ML @ 200 mls/hr IV.SIG Q24H JOSE Rx#:[id number] Oral 360 / 360 Other: # Voids 3 Date of Last Bowel Movement 03/14/18 03/14/18 03/14/18 Narrative: GENERAL: no acute distress SKIN: no visible lesions EYES: EOM grossly I CARDIOVASCULAR: Regular rate and rhythm; no murmurs. Normal perfusion. No LE edema RESPIRATORY: CTAB; normal rate Chest: Mild persistent chest pain left of sternum with inspiration at ~5th rib; no point tenderness to palpation GASTROINTESTINAL: Abdomen soft, nontender, nondistended. Normal bowel sounds. MUSCULOSKELETAL: Grossly normal ROM and motor function NEUROLOGICAL: Awake and alert. No obvious cranial nerve deficits. Grossly normal peripheral motor/sensory function PSYCHIATRIC: Appropriate mood and affect; insight and judgment normal Results - Labs CBC & Chem 7: 03/16/18 05:20 03/16/18 05:20 Laboratory Results - last 24 hr 03/15/18 03/15/18 03/16/18 08:31 14:41 05:20 CBC w Diff Auto diff final WBC 11.1 H RBC 4.24 L Hgb 12.6 L Hct 38.5 L MCV 90.9 MCH 29.7 MCHC 32.7 RDW 14.4 Plt Count 244 MPV 9.3 Neut % (Auto) 48.8 Lymph % (Auto) 38.7 Swisher % (Auto) 8.2 H Eos % (Auto) 3.5 Baso % (Auto) 0.8 Neut # (Auto) 5.3 Lymph # (Auto) 4.3 Swisher # (Auto) 0.9 Eos # (Auto) 0.4 Baso # (Auto) 0.1 WBC Differential . Differential Comment . ESR 2 Sodium Potassium Chloride Carbon Dioxide Anion Gap BUN Creatinine Estimated GFR Random Glucose Calcium Urine Opiates Screen Neg Ur Barbiturates Screen Neg Ur Amphetamines Screen Neg U Benzodiazepines Scrn Neg Urine Cocaine Screen Neg U Cannabinoids Screen Neg 03/16/18 05:20 CBC w Diff WBC RBC Hgb Hct MCV MCH MCHC RDW Plt Count MPV Neut % (Auto) Lymph % (Auto) Swisher % (Auto) Eos % (Auto) Baso % (Auto) Neut # (Auto) Lymph # (Auto) Swisher # (Auto) Eos # (Auto) Baso # (Auto) WBC Differential Differential Comment ESR Sodium 139 Potassium 4.3 Chloride 106 Carbon Dioxide 25.6 Anion Gap 7 BUN 12 Creatinine 0.81 Estimated GFR Greater than 89 Random Glucose 94 Calcium 8.2 L Urine Opiates Screen Ur Barbiturates Screen Ur Amphetamines Screen U Benzodiazepines Scrn Urine Cocaine Screen U Cannabinoids Screen Microbiology 03/14/18 22:53 Blood - Peripheral Aerobic Blood Culture - Preliminary No growth in 2 days 03/14/18 22:53 Blood - Peripheral Anaerobic Blood Culture - Preliminary No growth in 2 days 03/14/18 22:45 Blood - Peripheral Aerobic Blood Culture - Preliminary No growth in 2 days 03/14/18 22:45 Blood - Peripheral Anaerobic Blood Culture - Preliminary No growth in 2 days Assessment and Plan - Assessment (1) Chest pain Code(s): R07.9 - Chest pain, unspecified Status: Acute (2) Pneumonia Code(s): J18.9 - Pneumonia, unspecified organism Status: Acute (3) SIRS (systemic inflammatory response syndrome) Code(s): R65.10 - Systemic inflammatory response syndrome (SIRS) of non- infectious origin without acute organ dysfunction Status: Acute - Plan Mr. Renteria is a 33 yo M with: Chest pain, leukocytosis Impression: History: 2 day history of chest pain; worse with deep inspiration. Unclear etiology of symptoms Vitals on admission: HR >120, otherwise unremarkable. EKG- sinus tachycardia; no obvious LVH or other pathology identified CXR negative Labs: WBC 23.9K on admission (91.9 neutrophils), troponin <0.02, Cr 1.3. ESR 2 Lab trending- WBC 23.9K-> 17.5K-> 11.1K CT A/P- mild L basilar airspace disease w/ small left effusion UDS negative Blood cultures negative x2 days Echo- unremarkable -Continue to trend CBC -WBC decreased to ~11 K today; resolving -Will check as outpatient -Continue empiric CAP treatment -Rocephin and Azithromycin -Will transition to Azithromycin and Augmentin at discharge -Will plan to discharge on Meloxicam, Flexeril, [place] for pain control DVT PPX SCD's Discharge Planning: Plan for discharge today and f/u with PCP (2) Pneumonia Qualifiers: Pneumonia type: due to unspecified organism Laterality: left Lung location: lower lobe of lung Qualified Code(s): J18.1 - Lobar pneumonia, unspecified organism
[2018-03-16 15:52] VITALS: BP 114/71; PULSE 88; TEMP 98; O2SAT 98
--- NOTE | 2018-03-20 20:06 | P.DS ---
Date of admission: 03/15/18 00:27 Primary care physician: No Primary Care Physician Attending physician on discharge: Chandler Stokes Anticipated date of discharge: 03/17/18 Brief History from admission: Mr. Renteria is a 33 yo male with PMH of back pain who presented to [facility] ED 03/14 with chest and left arm pain; patient states that this pain started the night before last. Patient describes some of his pain as constant, but that he has sharp increases of pain with deep breaths. No reported exertional symptoms. No sputum production. Patient has had a subjective fever. Patient has had a mild cough but no more than usual. Patient feels that pain is improved but still present with deep breaths. Patient had one episode of vomiting which he attributes to pain; no postprandial pain or vomiting. Normal bowel movements and urination. No headache, vision changes, or extremity numbness/tingling/ weakness reported. Patient reports distant IVDU but none for years. PMH-back pain since age 13, some scoliosis/ chronic spinal pathology PSH- none FH- Dad- unspecified spine cancer. Mom- ? psychiatric problems. GP- CAD, pneumonia. SH- smoking <1PPD. No recent drug use but distant IVDU Patient update on day of discharge: Mr. Renteria was afebrile with stable VS overnight. Patient reports continued chest pain when breathing deeply or rotating his body in bed. Pain is in left chest. Patient otherwise is doing ok. No reported shortness of breath or urinary/bowel abnormalities. Patient is agreeable with discharge home and follow-up with a primary care physician. DS: Diagnosis - Discharge Diagnosis (1) Chest pain Status: Acute (2) Pneumonia Status: Acute (3) SIRS (systemic inflammatory response syndrome) Status: Acute DS: Medications - Discharge Medications Prescriptions: azithromycin [Zithromax Z-Jong] 250 mg PO DAILY #5 tab cyclobenzaprine 5 mg PO Q8HR #30 tab hydrocodone-acetaminophen 1 tab PO Q6H PRN #12 tab PRN Reason: Breakthrough Pain levofloxacin 750 mg PO DAILY #7 tab meloxicam 7.5 mg PO DAILY #14 tab DS: Summary Hospital Course: Mr. Renteria is a 33 yo male with PMH of back pain who presented to [facility] ED 03/14 with chest and left arm pain; patient states that this pain started the night before last. Patient described his pain as constant, but that he has sharp increases of pain with deep breaths. Patient reported distant IVDU but none recently. Patient tachycardic in ED but otherwise stable VS. WBC 23.9K on admission; troponin wnl, Cr 1.3. CT A negative for PE; CT A/P with mild L basilar airspace disease and small L effusion. Blood cultures were obtained. Patient started on empiric Rocephin and Azithromycin for possible pneumonia. For possible MSK vs pleuritic pain, he was given NSAID, muscle relaxer, and [place] for pain control. Patient's leukocytosis downtrended during hospitalization. After cultures were negative x2 days, patient was discharged home on pain medications and Azithromycin/Augmentin for coverage for possible pneumonia. Outpatient f/u with PCP recommended at [place]. - Time Spent with Patient Total time spent providing and/or coordinating discharge services: Less than 30 minutes - Quality: VTE Deep Vein Thrombosis/Pulmonary Embolism Present on Admission: No Exam Vital signs: Initial Documented Vital Signs Temperature 99.4 F 03/14/18 22:12 Pulse Rate 122 H 03/14/18 22:12 Respiratory Rate 20 03/14/18 22:12 Blood Pressure 128/73 03/14/18 22:12 Pulse Oximetry 97 03/14/18 22:12 Last Documented Vital Signs Temperature 98.0 F 03/16/18 15:51 Pulse Rate 88 03/16/18 15:51 Respiratory Rate 18 03/16/18 15:51 Blood Pressure 114/71 03/16/18 15:51 Pulse Oximetry 98 03/16/18 15:51 Narrative: GENERAL: no acute distress SKIN: no visible lesions EYES: EOM grossly I CARDIOVASCULAR: Regular rate and rhythm; no murmurs. Normal perfusion. No LE edema RESPIRATORY: CTAB; normal rate Chest: Mild persistent chest pain left of sternum with inspiration at ~5th rib; no point tenderness to palpation GASTROINTESTINAL: Abdomen soft, nontender, nondistended. Normal bowel sounds. MUSCULOSKELETAL: Grossly normal ROM and motor function NEUROLOGICAL: Awake and alert. No obvious cranial nerve deficits. Grossly normal peripheral motor/sensory function PSYCHIATRIC: Appropriate mood and affect; insight and judgment normal Results Procedures completed during hospitalization: None - Impressions ITS Impressions Abdomen/Pelvis CT 03/14/18 22:33 CONCLUSION: 1. Mild left basilar airspace disease with small left effusion. Primary differential diagnosis is a mild bronchopneumonia with small parapneumonic effusion. 2. No acute findings within the abdomen and pelvis. Chest CTA 03/14/18 22:33 CONCLUSION: 1. Negative for pulmonary embolus. Small left-sided pleural effusion of unknown etiology. Chest X-Ray 03/14/18 22:34 CONCLUSION: Negative examination. Discharge Plan - Discharge Disposition Patient Disposition: 01 Discharge Home - Discharge Condition Condition: Stable - Discharge Order Discharge Orders: Discharge Order (Routine); Ordered 03/16/18 Ordered By: Chandler Stokes - Discharge Details Anticipated Discharge Date: 03/16/18 - Physicians Team Primary Care Provider: Primary Care Wanda Duckworth Attending Provider: Chandler Stokes
== END 2018-03-16 17:37 | disposition home or self-care (01) ==
LOC: PHEDA 21:50 → PHED 21:50 → PH3 03-15 01:02
PROVIDERS: ADMIT Family Medicine; ATTEND Family Medicine